=== PATIENT | male | born 1985 | race Caucasian/White ===

== ENCOUNTER 2019-05-03 14:47 | Emergency (ER) | payer OTHER ==
[~2019-05-03] VITALS: Ht 165.1 cm; Wt 61.2 kg
[~2019-05-03 14:47] MED LIST: AMOXICILLIN500 M1 PO; AMOXICILLIN875 MG PO; ERYTHROMYCIN E3.5 G1 OPHTHALMIC; FLEXERIL PO; HYDROCODONE-AP1 EAC6 PO; IBUPROFEN 800800 M1 PO; LAMISIL AT15 GM TP; LEVAQUIN 500 M500 M1 PO; LIDOCAINE VISC100 M1 SWISH&SPIT; NAPROSYN500 MG PO; NOHOMEMEDICATIONS; NORCO 5-325 TA1 EAC1 PO; NORCO 5-325 TA1 EACH PO; PENICILLIN V P500 MG PO; PREDNISONE 10 M10 M1 PO; PROAIR HFA8.5 GM INH; ROBAXIN500 MG PO
[2019-05-03 14:59] VITALS: BP 109/82
[2019-05-03] MEDS ORDERED: PREDNISONE 10 M10 MG PO (15:25)
[2019-05-03] MEDS ORDERED: FLEXERIL PO (15:25)
== END 2019-05-03 15:43 | disposition home or self-care (01) ==
LOC: M.ERS 14:47
DX: M79.10 Myalgia, unspecified site (principal); F17.210 Nicotine dependence, cigarettes, uncomplicated; M25.511 Pain in right shoulder; M54.6 Pain in thoracic spine; Z88.5 Allergy status to narcotic agent

== ENCOUNTER 2020-03-06 16:04 | Emergency (ER) | payer OTHER, MEDICAID ==
[~2020-03-06] VITALS: Ht 172.7 cm; Wt 59.0 kg
[~2020-03-06 16:04] MED LIST changes: +PREDNISONE 10 M10 MG PO
[2020-03-06 16:17] VITALS: BP 150/98
[2020-03-06] MEDS ORDERED: TRAMADOL 50 MG50 MG PO (16:20)
== END 2020-03-06 17:17 | disposition left against medical advice (07) ==
LOC: M.ERS 16:04
DX: R10.9 Unspecified abdominal pain (principal); R11.2 Nausea with vomiting, unspecified; Z53.21 Procedure and treatment not carried out due to patient leaving prior to being seen by health care provider

== ENCOUNTER 2020-07-04 15:13 | Emergency (ER) | payer OTHER, MEDICAID ==
[~2020-07-04] VITALS: Ht 165.1 cm; Wt 69.8 kg
[~2020-07-04 15:13] MED LIST changes: +TRAMADOL 50 MG50 MG PO
[2020-07-04] MEDS ORDERED: NEURONTIN 300M300 M2 PO (15:27)
[2020-07-04] MEDS ORDERED: REMERON15 M2 PO (15:27)
[2020-07-04] MEDS ORDERED: NAPROSYN500 MG PO (17:03)
[2020-07-04] MEDS ORDERED: NORCO 5-325 TA1 EAC2 PO (17:48)
[2020-07-04] MEDS ORDERED: LIDODERM1 EACH TOP (17:48)
[2020-07-04] MEDS ORDERED: MEDROLDOSEPACK PO (17:48)
[2020-07-04 18:08] VITALS: BP 121/74
== END 2020-07-04 18:09 | disposition home or self-care (01) ==
LOC: M.ERS 15:13
DX: M54.5 Low back pain (principal); M54.6 Pain in thoracic spine; M25.552 Pain in left hip; F17.210 Nicotine dependence, cigarettes, uncomplicated

== ENCOUNTER 2021-10-03 20:10 | Emergency (ER) | payer OTHER, MEDICAID ==
[~2021-10-03] VITALS: Ht 162.6 cm; Wt 66.2 kg
[~2021-10-03 20:10] MED LIST changes: +LIDODERM1 EACH TOP; +MEDROLDOSEPACK PO; +NEURONTIN 300M300 M2 PO; +NORCO 5-325 TA1 EAC2 PO; +REMERON15 M2 PO
[2021-10-03 20:23] VITALS: BP 131/74
[2021-10-03] MEDS ORDERED: IBUPROFEN 800800 MG PO (21:15)
[2021-10-03] MEDS ORDERED: FLEXERIL PO (21:15)
== END 2021-10-03 21:21 | disposition home or self-care (01) ==
LOC: M.ERS 20:10
DX: M54.59 Other low back pain (principal); F17.210 Nicotine dependence, cigarettes, uncomplicated